=== PATIENT | female | born 1965 | race Caucasian/White ===

== ENCOUNTER 2019-01-04 23:44 | Emergency (ER) | payer MEDICAID ==
[~2019-01-04] VITALS: Ht 160 cm; Wt 120.6 kg
[2019-01-05] MEDS ORDERED: KETOROLAC 30MG/ML VIAL IM ONE (01:30)
[2019-01-05] MEDS: KETOROLAC 15MG/ML VIAL IM NR ×2 (02:06→02:07)
[2019-01-05 02:52] VITALS: BP 178/82
== END 2019-01-05 02:56 | disposition home or self-care (01) ==
LOC: ER 23:44
DX: M25.561 Pain in right knee (principal)
CPT/HCPCS: 73562; 93971; 96372; 99284; J1885; Z7610